=== PATIENT | male | born 1950 | race Caucasian/White ===

== ENCOUNTER 2017-02-24 11:17 | Observation (INO) ==
--- NOTE | 2017-02-24 11:43 | Emergency Department Note ---
Neuro HPI - General Chief Complaint: Stroke Symptoms Stated Complaint: Stroke symptoms Time Seen by Provider: 02/24/17 11:36 Source: family Mode of arrival: wheelchair - History of Present Illness HPI Narrative: This patient began having trouble speaking last evening about 6 PM which is now almost 18 hours ago. He called his daughter this morning he also complained it is having trouble speaking and she went saw him and had EMS bring him to the hospital for concern of a stroke. He is also noticed a little difficulty in his left arm with slight weakness and left facial droop. His blood pressure was quite high on arrival was down some now. No history of previous stroke heart disease. He does have a history of hypertension chronic back pain and hepatitis C. - Related Data Home Medications: Home Medications Medication Instructions Recorded Confirmed bisacodyl 10 mg rectal suppository 10 mg DE ONCE PRN 04/27/16 02/24/17 lorazepam 1 mg tablet 1 mg PO .COMPLEX 04/27/16 02/24/17 magnesium hydroxide 400 mg/5 mL 30 ml PO .COMPLEX ml 04/27/16 02/24/17 oral suspension sodium phosphates 19 gram-7 118 ml DE ONCE PRN 04/27/16 02/24/17 gram/118 mL enema Acetaminophen [Non-Aspirin] 650 mg PO PRN PRN 02/24/17 02/24/17 Acetaminophen [Tylenol] 650 mg DE Q4-6HP PRN 02/24/17 02/24/17 Bisacodyl [Dulcolax] 10 mg DE DAILYP PRN 02/24/17 02/24/17 Previous Rx's Medication Instructions Recorded Polyethylene Glycol 3350 [Miralax] 17 gm PO DAILYP PRN #0 packet 12/03/15 pantoprazole 40 mg tablet,delayed 40 mg PO BIDAC #90 tab 07/24/16 release fentanyl 75 mcg/hr transdermal 75 mcg TOPICAL Q72H #10 patch 01/31/17 patch hydrocodone 7.5 mg-acetaminophen 1 tab PO Q6H PRN #90 tab 01/31/17 325 mg tablet metoprolol tartrate 100 mg tablet 100 mg PO BID #60 tab 02/04/17 paroxetine 20 mg tablet 10 mg PO DAILYP PRN #0 tab 02/04/17 Allergies/Adverse Reactions: Allergies Allergy/AdvReac Type Severity Reaction Status Date / Time vancomycin Allergy Intermediate Redness of Verified 02/24/17 11:21 Skin codeine [CODEINE] AdvReac Mild NAUSEA Verified 02/24/17 11:21 Review of Systems Constitutional: Denies: fever Eyes: Denies: eye pain ENT ED: Denies: ear pain Cardiovascular: Denies: chest pain Respiratory: Denies: cough Gastrointestinal: Denies: abdominal pain, nausea Genitourinary: Denies: urgency Musculoskeletal: Reports: back pain Integumentary: Denies: rash Neurological: Denies: headache Past Medical History - Past Medical History [facility] Narrative: Medical History Disease of spinal cord, unspecified (Chronic) Gastrointestinal bleed (Chronic) Exostosis of unspecified site (Chronic) Degeneration of cervical intervertebral disc (Chronic) Renal infarction (Acute) Gastric ulcer with hemorrhage and perforation (Resolved) Gastrocutaneous fistula (Resolved) Malnutrition following gastrointestinal surgery (Resolved) Infection (Resolved) Anemia (Acute) Acute urinary retention (Resolved) Wound infection (Chronic) Subphrenic abscess (Resolved) Encounter for Postoperative Care (Acute) Perforated gastric ulcer (Resolved) Electrolyte disorder (Chronic) History of tobacco use (Chronic) Hypertension, essential (Chronic) Hepatitis C, chronic (Chronic) Chronic pain (Chronic) Lymphoid hyperplasia (Chronic) Degeneration of cervical intervertebral disc (Resolved) Exostosis (Resolved) Gastrointestinal bleed (Resolved) Spinal cord disease (Inactive) Past Surgical History History of pyloroplasty (Resolved 06/24/14) History of lumbar discectomy (Resolved) History of esophagogastroduodenoscopy (Resolved 08/03/14) History of cervical discectomy (Resolved) H/O colonoscopy (Resolved) Family History Father Heart problem Medical history: Reports: hypertension, other Surgical history ED: Reports: other - Social History smoking status: Heavy tobacco smoker Physical Exam - General Limitations: no limitations General appearance: alert, anxious - Head Head exam: atraumatic, normocephalic - Eye Eye exam: Present: normal appearance - ENT ENT exam: normal exam - Neck Neck exam: Present: normal inspection - Chest Chest inspection: Present: normal inspection - Respiratory Respiratory exam: Present: normal lung sounds bilaterally - Cardiovascular Cardiovascular exam: Present: regular rate, normal rhythm, normal heart sounds - Abdominal Exam Abdominal exam: Present: soft. Absent: distention, tenderness - Neurological Exam Neurological exam: Present: alert - Expanded Neurological Exam Cranial nerves: facial palsy (VII): Abnormal Left Cerebellar function: finger to nose: Abnormal Left Motor strength - LUE: 5/5 Motor strength - RUE: 5/5 Motor strength - RLE: 5/5 - Psychiatric Psychiatric exam: Present: normal affect, normal mood - Skin Skin exam: Present: warm, dry, intact Course Vital Signs Temperature 97.5 F 02/24/17 11:17 Pulse Rate 77 02/24/17 11:17 Respiratory Rate 16 02/24/17 11:17 Blood Pressure 194/158 02/24/17 11:17 Temperature 97.8 F 02/25/17 04:00 Pulse Rate 83 02/25/17 06:45 Respiratory Rate 15 02/25/17 05:00 Blood Pressure 192/90 02/25/17 05:00 Pulse Oximetry (%) 96 02/25/17 05:00 Neuro Symptoms/Deficit - MDM Narrative Medical decision making narrative: Patient's initial CT scan did not show an acute stroke but showed many old lacunar infarcts. Did discuss the case with Dr. Ledesma who felt the patient could stay at our hospital. Dr. Martínez admitted him to the hospital. - Lab Data Lab results reviewed: Yes I reviewed the patient's lab results. Result diagrams: 02/25/17 06:05 02/25/17 06:05 Lab Results 02/24/17 02/24/17 02/24/17 Range/Units 11:25 11:25 11:25 WBC 14.1 H (4.5-11.0) K/mcL RBC 5.09 (4.50-5.90) M/mcL Hgb 16.8 H (13.5-16.5) g/dL Hct 50.7 (41.0-55.0) % POC Hct 54.0 (41.0-55.0) % MCV 99.4 (80.0-100.0) fL MCH 33.0 (26.0-34.0) pg MCHC 33.2 (31.0-36.0) g/dL RDW 13.8 (11.5-14.5) % Plt Count 282 (140-440) K/mcL MPV 9.4 (7.4-10.4) fL Gran % 65.9 (38.0-78.0) % Lymph % (Auto) 25.2 (15.5-49.0) % [place] % (Auto) 8.5 (1.0-12.0) % Eos % (Auto) 0.3 (0.0-7.0) % Baso % (Auto) 0.1 (0.0-2.0) % Gran # 9.3 H (1.8-8.0) K/mcL Lymph # (Auto) 3.6 (1.5-4.8) K/mcL [place] # (Auto) 1.2 H (0.1-0.9) K/mcL Eos # (Auto) 0 (0.0-0.7) K/mcL Baso # (Auto) 0 (0.0-0.3) K/mcL POC PT (11.9-14.5) sec POC INR (0.9-1.2) APTT (20-37) sec POC Sodium 135 (133-145) mmol/L Sodium 134 (133-145) mmol/L POC Potassium 3.6 (3.3-5.1) mmol/L Potassium 3.8 (3.3-5.1) mmol/L POC Chloride 93 L (96-108) mmol/L Chloride 92 L (96-108) mmol/L Carbon Dioxide 26 (22-30) mmol/L POC Total CO2 29 (22-30) mmol/L Anion Gap 16.0 (8-16) POC BUN < 3 L (8-23) mg/dl BUN 4 L (8-23) mg/dl Creatinine 0.7 (0.7-1.2) mg/dl POC Creatinine 0.6 L (0.7-1.2) mg/dl GFR Calculation 99 Glucose 90 (70-105) mg/dL POC Glucose 90 (70-105) mg/dL Hemoglobin A1c (4.0-6.0) % HGB Estim Average Glucose mg/dL Calcium 9.9 (8.6-10.4) mg/dl POC WB Ioniz Calcium 1.11 L (1.16-1.32) mmol/L Total Bilirubin 0.6 (0.0-1.0) mg/dL AST 23 (0-37) U/l ALT 7 (0-40) U/l Alkaline Phosphatase 98 (39-117) U/L Troponin T < 0.01 (0-0.03) ng/ml Total Protein 8.4 (5.9-8.4) gm/dL Albumin 4.2 (3.2-5.2) gm/dL Globulin 4.2 H (2.2-3.7) gm/dL Albumin/Globulin Ratio 1.0 (1.0-2.3) Triglycerides (<150) mg/dl Cholesterol (<200) mg/dl LDL Cholesterol, Calc (SEE CHART) mg/dl Non-HDL Cholesterol (LDL TARGET+30) HDL Cholesterol (>40) mg/dl Urine Color Urine Appearance Urine pH (5.0-9.0) Ur Specific [place] (1.000-1.035) Urine Protein (NEG) mg/dL Urine Glucose (UA) (NEG) mg/dL Urine Ketones (NEG) mg/dL Urine Occult Blood (<0.03) mg/dL Urine Nitrate (NEG) Urine Bilirubin (NEG) mg/dL Urine Urobilinogen (NEG) mg/dL Ur Leukocyte Esterase (NEG) /uL Urine RBC (0-1) /hpf Urine WBC (0-4) /hpf Ur Squamous Epith Cells (0-4) /hpf Urine Bacteria (0) /hpf Urine Mucus (0) /hpf Ur Culture Indicated? 02/24/17 02/24/17 02/24/17 Range/Units 11:25 12:25 13:10 WBC (4.5-11.0) K/mcL RBC (4.50-5.90) M/mcL Hgb (13.5-16.5) g/dL Hct (41.0-55.0) % POC Hct (41.0-55.0) % MCV (80.0-100.0) fL MCH (26.0-34.0) pg MCHC (31.0-36.0) g/dL RDW (11.5-14.5) % Plt Count (140-440) K/mcL MPV (7.4-10.4) fL Gran % (38.0-78.0) % Lymph % (Auto) (15.5-49.0) % [place] % (Auto) (1.0-12.0) % Eos % (Auto) (0.0-7.0) % Baso % (Auto) (0.0-2.0) % Gran # (1.8-8.0) K/mcL Lymph # (Auto) (1.5-4.8) K/mcL [place] # (Auto) (0.1-0.9) K/mcL Eos # (Auto) (0.0-0.7) K/mcL Baso # (Auto) (0.0-0.3) K/mcL POC PT 13.3 (11.9-14.5) sec POC INR 1.1 (0.9-1.2) APTT 34 (20-37) sec POC Sodium (133-145) mmol/L Sodium (133-145) mmol/L POC Potassium (3.3-5.1) mmol/L Potassium (3.3-5.1) mmol/L POC Chloride (96-108) mmol/L Chloride (96-108) mmol/L Carbon Dioxide (22-30) mmol/L POC Total CO2 (22-30) mmol/L Anion Gap (8-16) POC BUN (8-23) mg/dl BUN (8-23) mg/dl Creatinine (0.7-1.2) mg/dl POC Creatinine (0.7-1.2) mg/dl GFR Calculation Glucose (70-105) mg/dL POC Glucose (70-105) mg/dL Hemoglobin A1c 5.1 (4.0-6.0) % HGB Estim Average Glucose 100 mg/dL Calcium (8.6-10.4) mg/dl POC WB Ioniz Calcium (1.16-1.32) mmol/L Total Bilirubin (0.0-1.0) mg/dL AST (0-37) U/l ALT (0-40) U/l Alkaline Phosphatase (39-117) U/L Troponin T (0-0.03) ng/ml Total Protein (5.9-8.4) gm/dL Albumin (3.2-5.2) gm/dL Globulin (2.2-3.7) gm/dL Albumin/Globulin Ratio (1.0-2.3) Triglycerides 98 (<150) mg/dl Cholesterol 193 (<200) mg/dl LDL Cholesterol, Calc 133 H (SEE CHART) mg/dl Non-HDL Cholesterol 152 H (LDL TARGET+30) HDL Cholesterol 41 (>40) mg/dl Urine Color Yellow Urine Appearance Clear Urine pH 7.0 (5.0-9.0) Ur Specific [place] 1.010 (1.000-1.035) Urine Protein 30 A (NEG) mg/dL Urine Glucose (UA) Negative (NEG) mg/dL Urine Ketones 20 A (NEG) mg/dL Urine Occult Blood 0.2 A (<0.03) mg/dL Urine Nitrate Neg (NEG) Urine Bilirubin Neg (NEG) mg/dL Urine Urobilinogen 2.0 A (NEG) mg/dL Ur Leukocyte Esterase Neg (NEG) /uL Urine RBC 12 H (0-1) /hpf Urine WBC 1 (0-4) /hpf Ur Squamous Epith Cells 0 (0-4) /hpf Urine Bacteria 0 (0) /hpf Urine Mucus Few (0) /hpf Ur Culture Indicated? No - Radiology Data Radiology results reviewed: Yes I reviewed the patient's radiology results. Disposition Pt seen by SCIENCE ANALYST/PA only: No Clinical Impression: Stroke Symptoms Disposition: Xfer As Inpt ([facility]) Condition: Critical
[2017-02-24 12:20] LABS: Basophils # (Auto) 0 K/mcL (0.0-0.3); Basophils % (Auto) 0.1 % (0.0-2.0); Eosinophils # (Auto) 0 K/mcL (0.0-0.7); Eosinophils % (Auto) 0.3 % (0.0-7.0); Granulocytes % (Auto) 65.9 % (38.0-78.0); Lymphocytes # (Auto) 3.6 K/mcL (1.5-4.8); Lymphocytes % (Auto) 25.2 % (15.5-49.0); Mean Cell Volume 99.4 fL (80.0-100.0); Mean Corpuscular HGB Conc 33.2 g/dL (31.0-36.0); Monocytes # (Auto) 1.2 K/mcL (0.1-0.9); Monocytes % (Auto) 8.5 % (1.0-12.0); Platelet Count 282 K/mcL (140-440); RBC 5.09 M/mcL (4.50-5.90); Red Cell Distribution Width 13.8 % (11.5-14.5)
[2017-02-24 12:58] LABS: ALT/SGPT 7 U/l (0-40); Albumin 4.2 gm/dL (3.2-5.2); Alkaline Phosphatase 98 U/L (39-117); Blood Urea Nitrogen 4 mg/dl (8-23)
[2017-02-24 13:44] LABS: Appearance,Urine CLEAR; Bacteria,Urine 0 /hpf (0); Bilirubin,Urine NEG (NEG); Color,Urine YELLOW; Glucose,Urine (UA) NEGATIVE (NEG); Leukocyte Esterase,Urine NEG /uL (NEG); Mucus,Urine FEW /hpf (0); Nitrate,Urine NEG (NEG); Protein,Urine 30 mg/dL (NEG); Urine Blood 0.2 mg/dL (<0.03); Urine RBC 12 /hpf (0-1); Urine Squamous Epithelial Cell 0 /hpf (0-4); Urine WBC 1 /hpf (0-4)
--- NOTE | 2017-02-24 14:53 | Cat Scan Report ---
History: Acute stroke symptoms with aphasia and facial paralysis Findings: The brain was imaged without contrast at 2.5 mm intervals. There is a moderately large old infarct with encephalomalacia involving the distribution right posterior cerebral artery. The greatest involvement is in the visual cortex the right occipital lobe. This extends into the posterior medial portion of the right parietal lobe. There are multiple lacunar infarcts with encephalomalacia. There is involvement both left and right caudate nucleus and the anterior superior margin of the left putamen, near the boundary with the anterior limb of left internal capsule. These also appear to be old. However, they were not present on a prior head CT angiogram done in 2004. No cortical infarct is detected in the region of the speech center. There is no hemorrhage or mass effect. Moderate atrophy is present, predominantly involving the frontal lobes. Associated with this is mild ventricular dilatation. The atrophy has become worse since 2004. Impression: Multiple old infarcts involving the basal ganglia bilaterally and the right parietal/occipital lobes. An acute infarct is not identified. Dr. Mcmillan was called with results at 11:40 AM. Interpreted and Authenticated by: Max Mason 02/24/17
[2017-02-24] MEDS ORDERED: NALOXONE HCL 0.4 MG/ML VIAL IV PRN (14:58)
[2017-02-24] MEDS ORDERED: ONDANSETRON 4 MG/2 ML VIAL IV PRN (14:58)
[2017-02-24] MEDS ORDERED: ACETAMINOPHEN 325 MG TABLET PO PRN (14:58)
[2017-02-24] MEDS ORDERED: NITROGLYCERIN 0.4 MG TAB.SUBL SL PRN (14:58)
[2017-02-24] MEDS ORDERED: DEXTROSE 50% 50 ML VIAL IV PRN (14:58)
[2017-02-24] MEDS ORDERED: ALBUTEROL SULFATE 2.5 MG/3 ML NEBULIZER NEB PRN (14:58)
[2017-02-24] MEDS ORDERED: LORazepam 2 MG/ML VIAL IV PRN (14:58)
[2017-02-24 15:06] LABS: Hemoglobin A1C 5.1 % HGB (4.0-6.0)
[2017-02-24] MEDS: HEPARIN 5,000 UNIT/ML VIAL SQ SCH ×2 (15:19→20:48)
--- NOTE | 2017-02-24 15:24 | Cat Scan Report ---
History: Stroke with aphasia and facial paralysis Technique: Nonionic contrast was injected. Arterial phase images were acquired of the head and neck separately. Sagittal coronal and 3-D images were then created. Findings: The aortic arch and great vessels arising from the arch are normal caliber. There is a moderate amount of plaque distortion the left subclavian artery. This is not causing significant stenosis. The common carotids are normal. A large amount densely calcified plaque is present in the carotid bifurcation bilaterally. This is causing greater than 90% stenosis at the origin of the right internal carotid and proximal 75% stenosis origin left internal carotid. Beyond their origins, the internal carotids are normal throughout the remainder the neck. The left vertebral artery is dominant. There is a focal stenosis at the origin of the right vertebral artery with proximal 70% stenosis. Intracranial images show densely calcified plaques in the cavernous portions of both internal carotids. This is causing 75-80% stenosis of both internal carotids. There is filling of the anterior and middle cerebral arteries bilaterally, with no occlusion of the visualized portions of the anterior or middle cerebral arteries. There is a small patent anterior to indicating artery. Patient also has small bilateral patent posterior to indicating arteries. There is a focal dense calcification in left vertebral artery at foramen magnum. This is not causing significant stenosis. The right vertebral and basilar artery are normal. Posterior fossa circulation is normal. The right posterior cerebral artery is very small and has diminished flow within it compared to the left. This corresponds with a large old infarct in the right occipital and parietal lobes. Present is no intracranial aneurysm or vascular malformation. Incidentally noted are postoperative changes following spinal fusion in the lower cervical spine using plate and screws. Is also severe left maxillary sinusitis. Impression: Severe atherosclerotic disease causing 90% stenosis at the origin of the right internal carotid and 75% stenosis in the left internal carotid. 75-80% stenosis of the intracranial portions of both internal carotids at the level of the cavernous sinuses. Dr. Martínez was called with results with the results Interpreted and Authenticated by: Max Mason 02/24/17
--- NOTE | 2017-02-24 15:34 | XRay Report ---
HISTORY: Reason for Exam:stroke FINDINGS: The lungs are clear and well expanded. Prominent nipple shadow is seen laterally in the left mid thorax. The heart size, pulmonary vasculature, mediastinum, maday and pleura are normal. IMPRESSION: Normal chest Interpreted and Authenticated by: Max Mason 02/24/17
[2017-02-24] MEDS ORDERED: ACETAMINOPHEN (PP) 325MG TABLET (#50) PO PRN (16:20)
[2017-02-24] MEDS ORDERED: PARoxetine 20 MG TABLET PO PRN (16:20)
--- NOTE | 2017-02-24 16:23 | Internal Med History&Physical ---
Medical - H&P: HPI Patient information: Note initiated : 02/24/17 at 4:22 pm Service Date, if different from initiated Date: [] Patient: Brodie Farooq 66 y/o M admitted on 02/24/17 for Stroke symptoms. Chief Complaint: [] History of present illness: Mr. Farooq is a 66 year old Male with h/o chr pain, hep c, GI bleed in the past presents to the ER today with complaints of left side weakness and slurring of speech going on since 6 pm yesterday The patient noticed this yesterday and did not come to the hospital, thioguht it would go away? this AM while talking to his family member likely the daugther he still had ongoing aphasia, and some lack of coordination. The was therfore brought to the hospital for further management. He notes he was in his usual state uptill around 6 PM yesterday when he noticed change in speech as well as some lack of coordination on the left side. He has chr pain issues, but beyond this does not complain of anything else. He denies any chest pain, palpitations, dizziness, headache, cough, bowel or bladder issues. The patient in the ER was seen and CT head was read as multiple old strokes. Patient was admitted to the hospital for further maangement. Tele stroke team contacted who advised workup here and no need for transfer workup initiated here, CTA neck and Head showed significant External Rt Carotid , left carotid , as well as bilateral Intracranial carotid artery stenosis. I reviewed the CAse with Dr Ledesma as well as Dr Luna (vascular surgeon). Dr Ledesma advised taht patient needs MRI and based on that may need outpatient vs inpatient evaluation of stenosis. I reviewed the case with Dr Luna, who noted that the patient should be monitored and since he has clinical CVA would benefit from waiting 4 weeks and then outpatient follow up in the clinic. The patient needs to be monitored and should there be any change in ins neurological status, then he would need urgent transfer to [place] for vascular intervention. Patient was advised to be started on dual antibplatlet agents asa and plavix, along with statin by Dr Ledesma. All systems: reviewed and no additional remarkable complaints except as stated ( as per HPI) Medical - H&P: PMH Medical history: Medical History Disease of spinal cord, unspecified (Chronic) Gastrointestinal bleed (Chronic) Exostosis of unspecified site (Chronic) Degeneration of cervical intervertebral disc (Chronic) Renal infarction (Acute) Gastric ulcer with hemorrhage and perforation (Resolved) Gastrocutaneous fistula (Resolved) Malnutrition following gastrointestinal surgery (Resolved) Infection (Resolved) Anemia (Acute) Acute urinary retention (Resolved) Wound infection (Chronic) Subphrenic abscess (Resolved) Encounter for Postoperative Care (Acute) Perforated gastric ulcer (Resolved) Electrolyte disorder (Chronic) History of tobacco use (Chronic) Hypertension, essential (Chronic) Hepatitis C, chronic (Chronic) Chronic pain (Chronic) Lymphoid hyperplasia (Chronic) Degeneration of cervical intervertebral disc (Resolved) Exostosis (Resolved) Gastrointestinal bleed (Resolved) Spinal cord disease (Inactive) Surgical history: Past Surgical History History of pyloroplasty (Resolved 06/24/14) History of lumbar discectomy (Resolved) History of esophagogastroduodenoscopy (Resolved 08/03/14) History of cervical discectomy (Resolved) H/O colonoscopy (Resolved) Pertinent family history: Family History Father Heart problem Medical - H&P: Meds Home Medications Medication Instructions Recorded Confirmed Type Polyethylene Glycol 3350 [Miralax] 17 gm PO DAILYP PRN #0 packet 12/03/15 Rx bisacodyl 10 mg rectal suppository 10 mg SD ONCE PRN 04/27/16 02/24/17 History lorazepam 1 mg tablet 1 mg PO .COMPLEX 04/27/16 02/24/17 History magnesium hydroxide 400 mg/5 mL 30 ml PO .COMPLEX ml 04/27/16 02/24/17 History oral suspension sodium phosphates 19 gram-7 118 ml SD ONCE PRN 04/27/16 02/24/17 History gram/118 mL enema pantoprazole 40 mg tablet,delayed 40 mg PO BIDAC #90 tab 07/24/16 02/24/17 Rx release fentanyl 75 mcg/hr transdermal 75 mcg TOPICAL Q72H #10 patch 01/31/17 02/24/17 Rx patch hydrocodone 7.5 mg-acetaminophen 1 tab PO Q6H PRN #90 tab 01/31/17 02/24/17 Rx 325 mg tablet metoprolol tartrate 100 mg tablet 100 mg PO BID #60 tab 02/04/17 02/24/17 Rx paroxetine 20 mg tablet 10 mg PO DAILYP PRN #0 tab 02/04/17 02/24/17 Rx Acetaminophen [Non-Aspirin] 650 mg PO PRN PRN 02/24/17 02/24/17 History Acetaminophen [Tylenol] 650 mg SD Q4-6HP PRN 02/24/17 02/24/17 History Bisacodyl [Dulcolax] 10 mg SD DAILYP PRN 02/24/17 02/24/17 History Allergies Allergy/AdvReac Type Severity Reaction Status Date / Time vancomycin Allergy Intermediate Redness of Verified 02/24/17 11:21 Skin codeine [CODEINE] AdvReac Mild NAUSEA Verified 02/24/17 11:21 Medical - H&P: Exam - Constitutional Vitals: Temp Pulse Resp BP Pulse Ox 97.4 F 74 19 193/107 99 02/24/17 16:03 02/24/17 15:00 02/24/17 16:03 02/24/17 16:03 02/24/17 16:03 Exam: GENERAL: The patient is a well-developed, well-nourished in no apparent distress. Is alert and oriented x3. VITAL SIGNS: Reviewed and as noted elsewhere. HEENT: Head is normocephalic and atraumatic. Extraocular muscles are intact. Pupils are equal, round, and reactive to light. Nares appeared normal. Mouth appears any without lesions. Mucous membranes are moist. NECK: Normal to inspection, Supple, No lymphadenopathy or thyromegaly. LUNGS: Air entry equal on both sides, no wheezing, crackles or rhonchi noted. No accessory muscles of respiration HEART: Regular rate and rhythm normal, S1 and S2 heard, no Gallop, S3 or Rub Noted, No Gross murmur heard. ABDOMEN: Soft, nontender, and nondistended. Positive bowel sounds. No hepatosplenomegaly was noted. EXTREMITIES: No cyanosis, clubbing, rash, lesions or edema. NEUROLOGIC: Cranial nerves 7 upper motor neuron palsy, CN 347 normal are grossly intact. Motor and Sensory System Grossly Intact, coordination grossly intact PSYCHIATRIC: Normal affect, Normal Mood. Appropriate Behavior. SKIN: No ulceration or wounds noted, No jaundice, No rash noted. Medical - H&P: Reslt - Labs CBC & Chem 7: 02/24/17 11:25 02/24/17 11:25 Labs: Short CBC 02/24/17 Range/Units 11:25 WBC 14.1 H (4.5-11.0) K/mcL Hgb 16.8 H (13.5-16.5) g/dL Hct 50.7 (41.0-55.0) % Plt Count 282 (140-440) K/mcL BMP 02/24/17 11:25 Sodium 134 Potassium 3.8 Chloride 92 L Carbon Dioxide 26 BUN 4 L Creatinine 0.7 Glucose 90 Calcium 9.9 Cardiac Enzymes 02/24/17 Range/Units 11:25 Troponin T < 0.01 (0-0.03) ng/ml Liver Function 02/24/17 Range/Units 11:25 Total Bilirubin 0.6 (0.0-1.0) mg/dL AST 23 (0-37) U/l ALT 7 (0-40) U/l Alkaline Phosphatase 98 (39-117) U/L Albumin 4.2 (3.2-5.2) gm/dL Urine 02/24/17 Range/Units 13:10 Urine Color Yellow Urine Appearance Clear Urine pH 7.0 (5.0-9.0) Ur Specific [place] 1.010 (1.000-1.035) Urine Protein 30 A (NEG) mg/dL Urine Glucose (UA) Negative (NEG) mg/dL Medical - H&P: A/P - Narrative A/P Narrative: A/P Acute CVA- Monitor in PCU for now, neurochecks q2hrs, xfer to higher center if worsening neurological status. start on asa, plavix and statin as per neurology reccs. HOld bp meds and monitor, monitor glucose, Carotid artery stenosis: needs intervention, Discussed case with Dr Luna, outaptient follow up in 4 weeks unless patient has stroke in evolution. Chr pain resume home meds Anxiety on ativan prn h/o anemia, gi bleed: BID PPI for now, continue same, now more needed as needs dual antiplatelet agents. HTN - hold bp meds in light of new cva, resume as tolerated, will use meds to keep bp < 220 systolic and 120 diastoilc. Hep C Chr issue monitor DVT hep sq Diet NPO for now, bed side eval by nursing to evaluate if safe for meds Full code. Medical - H&P: Qual - Stroke Onset of Symptoms Date: 02/23/17 Onset of Symptoms Time: 18:00 Symptom Onset Unknown: No - VTE Deep Vein Thrombosis/Pulmonary Embolism Present on Admission: No Social History - Social History marital status: - Exercise physical activity: walking - Tobacco smoking status: Current every day smoker - Tobacco Type tobacco type: cigarettes - Cigarette Details per day: 6 - Alcohol alcohol intake frequency: former alcohol drinker - Substance use substance use type: marijuana
[2017-02-24] MEDS ORDERED: fentaNYL 75 MCG PATCH TOPICAL SCH (16:30)
[2017-02-24] MEDS ORDERED: MAGNESIUM HYDROXIDE 30 ML ORAL.SUSP PO PRN (16:30)
[2017-02-24] MEDS ORDERED: LORazepam 1 MG TABLET PO PRN (16:30)
[2017-02-24] MEDS: INSULIN LISPRO 1 UNIT/0.01 ML UNIT SQ SCH (18:18)
[2017-02-24] MEDS ORDERED: BISACODYL 10 MG SUPP.RECT PR PRN (18:30)
[2017-02-24] MEDS: PANTOPRAZOLE 40 MG TABLET PO SCH (18:43)
[2017-02-24] MEDS: CLOPIDOGREL 75 MG TABLET PO SCH (18:43)
[2017-02-24] MEDS: 0.9 % SODIUM CHLORIDE 10 ML SYRINGE IV SCH (20:48)
[2017-02-24] MEDS: FAMOTIDINE/PF 20 MG/2 ML VIAL IV SCH (20:48)
[2017-02-24] MEDS: ATORVASTATIN 20 MG TABLET PO SCH (20:48)
[2017-02-25] MEDS: INSULIN LISPRO 1 UNIT/0.01 ML UNIT SQ SCH ×4 (00:22→18:32)
[2017-02-25] MEDS: HYDROmorphone 2 MG/ML SYRINGE IV PRN ×3 (00:52→15:21)
[2017-02-25] MEDS: 0.9 % SODIUM CHLORIDE 10 ML SYRINGE IV SCH ×3 (05:50→20:30)
[2017-02-25 07:06] LABS: Basophils # (Auto) 0.1 K/mcL (0.0-0.3); Basophils % (Auto) 0.5 % (0.0-2.0); Eosinophils # (Auto) 0 K/mcL (0.0-0.7); Eosinophils % (Auto) 0.3 % (0.0-7.0); Granulocytes % (Auto) 64.4 % (38.0-78.0); Lymphocytes # (Auto) 3.3 K/mcL (1.5-4.8); Lymphocytes % (Auto) 27.5 % (15.5-49.0); Mean Corpuscular HGB Conc 34.1 g/dL (31.0-36.0); Monocytes # (Auto) 0.9 K/mcL (0.1-0.9); Monocytes % (Auto) 7.3 % (1.0-12.0); Platelet Count 218 K/mcL (140-440); RBC 5.27 M/mcL (4.50-5.90); Red Cell Distribution Width 13.7 % (11.5-14.5)
[2017-02-25 07:29] LABS: ALT/SGPT 8 U/l (0-40); Alkaline Phosphatase 94 U/L (39-117); Bilirubin,Direct < 0.2 mg/dL (0.0-0.3); Blood Urea Nitrogen 6 mg/dl (8-23); Gamma Glutamyl Transpeptidase 52 U/L (8-61); Uric Acid 5.3 mg/dL (2.5-8.0)
[2017-02-25] MEDS: PANTOPRAZOLE 40 MG TABLET PO SCH ×2 (07:47→17:14)
--- NOTE | 2017-02-25 09:05 | Magnetic Resonance Report ---
CLINICAL INFORMATION: Left-sided weakness, facial paralysis and aphasia COMPARISON: Head CT from 02/24/2017 and CTA head and cervical carotid 02/24/2017. TECHNIQUE:Sagittal T1 FLAIR, axial T1 FLAIR, T2 FLAIR propeller, T2 propeller, gradient, diffusion, ADC and coronal T2 weighted images were acquired. FINDINGS: The ventricles, sulci, fissures and cisterns are symmetrically enlarged compatible with moderate atrophy - more than expected for age. There are no extra-axial fluid collections or masses appreciated. There are multiple small acute cortical based infarcts are scattered throughout the right frontal, parietal and occipital lobes. The largest is 3.5 x 1.5 cm in the motor strip of the posterior right frontal lobe. There is no evidence of hemorrhage. A small remote cortical-based infarct in the right occipital lobe is appreciated. There are also scattered remote lacunar infarcts in the basal ganglia and deep cerebral white matter. Signal void in the intracerebral arteries, orbits and pituitary are all normal. There is subtotal opacification left maxillary sinus. The other paranasal air cells are clear IMPRESSION: 1. Multiple small cortical based nonhemorrhagic lacunar infarcts scattered throughout the right cerebral hemisphere including the frontal, parietal and occipital lobes. The largest is 3.5 x 1 cm in the motor strip of the posterior right frontal lobe. Suspect embolic phenomenon 2. Moderate atrophy - more than expected for age. 3. Small remote cortical based infarct in the inferior occipital lobe and scattered remote lacunar infarcts in the deep cerebral white matter and basal ganglia. 4. Severe left maxillary sinusitis Interpreted and Authenticated by: Kar Morris 02/25/17
[2017-02-25] MEDS: HEPARIN 5,000 UNIT/ML VIAL SQ SCH ×2 (09:19→20:45)
[2017-02-25] MEDS: CLOPIDOGREL 75 MG TABLET PO SCH (09:19)
[2017-02-25] MEDS: ASPIRIN 81 MG TAB.CHEW PO SCH (09:20)
[2017-02-25] MEDS: FAMOTIDINE/PF 20 MG/2 ML VIAL IV SCH ×2 (09:20→20:46)
[2017-02-25] MEDS ORDERED: PNEUMOCOCCAL 23-VAL P-SAC VAC 0.5 ML VIAL IM ONE (10:00)
[2017-02-25] MEDS ORDERED: FLU VACC QS2017-18 36MOS UP/PF 60 MCG/0.5 ML SYRINGE IM ONE (10:00)
[2017-02-25] MEDS: fentaNYL 75 MCG PATCH TOPICAL SCH (10:23)
--- NOTE | 2017-02-25 16:58 | Internal Med Progress Note ---
Medical - PN: Subj Patient information: Note initiated : 02/25/17 at 4:56 pm Service Date, if different from initiated Date: [] Patient: Brodie Farooq 66 y/o M admitted on 02/24/17 for Stroke Symptoms/CVA. Chief Complaint: [] Interval history: Mr. Farooq is a 66 year old Male with h/o chr pain, hep c, GI bleed in the past presents to the ER today with complaints of left side weakness and slurring of speech going on since 6 pm yesterday The patient noticed this yesterday and did not come to the hospital, thioguht it would go away? this AM while talking to his family member likely the daugther he still had ongoing aphasia, and some lack of coordination. The was therfore brought to the hospital for further management. He notes he was in his usual state uptill around 6 PM yesterday when he noticed change in speech as well as some lack of coordination on the left side. He has chr pain issues, but beyond this does not complain of anything else. He denies any chest pain, palpitations, dizziness, headache, cough, bowel or bladder issues. The patient in the ER was seen and CT head was read as multiple old strokes. Patient was admitted to the hospital for further maangement. Tele stroke team contacted who advised workup here and no need for transfer workup initiated here, CTA neck and Head showed significant External Rt Carotid , left carotid , as well as bilateral Intracranial carotid artery stenosis. I reviewed the CAse with Dr Ledesma as well as Dr Luna (vascular surgeon). Dr Ledesma advised taht patient needs MRI and based on that may need outpatient vs inpatient evaluation of stenosis. I reviewed the case with Dr Luna, who noted that the patient should be monitored and since he has clinical CVA would benefit from waiting 4 weeks and then outpatient follow up in the clinic. The patient needs to be monitored and should there be any change in ins neurological status, then he would need urgent transfer to [place] for vascular intervention. Patient was advised to be started on dual antibplatlet agents asa and plavix, along with statin by Dr Ledesma February 25 pt seen examined stable overnight multiple lacunar infarcts on MRI discussed again with Dr Ledesma, plan to have outpatient eval by vascular surgery , Dr Luna in [place], patient ot be on dual antibplatet agents for now, on statin no new deficit. Pertinent ROS: Denies headache, dizziness Denies chest pain, palpitations Denies cough or shortness of breath Denies abdominal pain, nausea or vomiting. - Constitutional Vitals: Vital Signs Temp Pulse Resp BP Pulse Ox 98.2 F 93 H 16 153/104 97 02/25/17 12:01 02/25/17 16:49 02/25/17 16:49 02/25/17 16:01 02/25/17 16:49 Period Temp Pulse Resp BP Sys/Tamez Pulse Ox Last 24 Hr 97.6 F-98.2 F 69-93 9-22 148-208/89-124 95-100 Intake and Output 02/25/17 02/25/17 02/25/17 05:59 13:59 21:59 Output Total 250 / 250 200 / 200 Balance -250 / -250 -200 / -200 Intake & Output: Intake & Output 02/25/17 02/25/17 02/25/17 05:59 13:59 21:59 Output Total 250 / 250 200 / 200 Balance -250 / -250 -200 / -200 Output: Void Amount 250 / 250 200 / 200 Other: # Bowel Movements 0 Exam: Constitutional; Afebrile, cooperative, alert, not in distress. Eyes- No icterus, , No periorbital swelling Ears- Ext ear normal, hearing normal to conversation. Neck- Midline trachea, supple Respiratory system: Air Entry equal on both sides, No crackles or wheezing, no rhonchi. CVS- Rate rhythm regular, S1,S2 heard, no gallop, no rub. Abdomen- Soft nontender abdomen, no organomegaly, no tenderness, no guarding or rigidity, MANAGER INTEGRITY- AOOx3, left side 4+/5, no change, has left 7th paraesis, and dysarthria. Medical - PN: Obj Da - Labs CBC & Chem 7: 02/25/17 06:05 02/25/17 06:05 Labs: Abnormal Lab Results 02/25/17 02/25/17 02/24/17 06:05 06:05 13:10 WBC 12.0 H Hgb 17.4 H Gran # [place] # (Auto) POC Chloride Chloride 94 L POC BUN BUN 6 L POC Creatinine POC WB Ioniz Calcium Lactate Dehydrogenase 261 H Globulin 3.9 H LDL Cholesterol, Calc Non-HDL Cholesterol Urine Protein 30 A Urine Ketones 20 A Urine Occult Blood 0.2 A Urine Urobilinogen 2.0 A Urine RBC 12 H 02/24/17 02/24/17 02/24/17 11:25 11:25 11:25 WBC 14.1 H Hgb 16.8 H Gran # 9.3 H [place] # (Auto) 1.2 H POC Chloride 93 L Chloride 92 L POC BUN < 3 L BUN 4 L POC Creatinine 0.6 L POC WB Ioniz Calcium 1.11 L Lactate Dehydrogenase Globulin 4.2 H LDL Cholesterol, Calc 133 H Non-HDL Cholesterol 152 H Urine Protein Urine Ketones Urine Occult Blood Urine Urobilinogen Urine RBC Meds: Medications Acetaminophen (Tylenol) 650 mg PO Q4-6HP PRN PRN Reason: PAIN/FEVER > 101 Hydrocodone Bitart/Acetaminophen ([place] 7.5/325mg) 1 tab PO Q6HP PRN PRN Reason: pain Albuterol Sulfate (Ventolin) 2.5 mg NEB Q4HRT PRN PRN Reason: Shortness Of Breath Or Wheezing Aspirin (Aspirin) 81 mg PO DAILY [facility] Last Admin: 02/25/17 09:20 Dose: 81 mg Atorvastatin Calcium (Lipitor) 40 mg PO HS [facility] Last Admin: 02/24/17 20:48 Dose: 40 mg Bisacodyl (Dulcolax) 10 mg [place] DAILYP PRN PRN Reason: Constipation Clopidogrel Bisulfate (Plavix) 75 mg PO DAILY [facility] Last Admin: 02/25/17 09:19 Dose: 75 mg Dextrose (Dextrose 50%) 0 ml IV UD PRN PRN Reason: Hypoglycemia Diagnostic Test (Pha) (Accu-Chek) 1 each FS Q6 [facility] Last Admin: 02/25/17 12:18 Dose: 1 each Famotidine (Pepcid) 20 mg IV Q12 [facility] Last Admin: 02/25/17 09:20 Dose: 20 mg Fentanyl (Duragesic) 75 mcg TOPICAL Q72@1000 [facility] Last Admin: 02/25/17 10:23 Dose: 75 mcg Heparin Sodium (Porcine) (Heparin) 5,000 unit SQ Q12 [facility] Last Admin: 02/25/17 09:19 Dose: 5,000 unit Hydromorphone HCl (Dilaudid) 0.5 mg IV Q2HP PRN PRN Reason: Pain Last Admin: 02/25/17 15:21 Dose: 0.5 mg Insulin Human Lispro (Humalog) 0 unit SQ Q6 [facility] PRN Reason: Protocol Last Admin: 02/25/17 12:19 Dose: Not Given Lorazepam (Ativan) 0.5 mg IV Q2HP PRN PRN Reason: ANXIETY/SEDATION Lorazepam (Ativan) 0.5 - 1 mg PO DAILYP PRN PRN Reason: Anxiety Magnesium Hydroxide (Milk Of Magnesia) 30 ml PO DAILYP PRN PRN Reason: CONSTIPATION Naloxone HCl (Narcan) 0.1 mg IV Q2MIN PRN PRN Reason: Opiate Reversal Nitroglycerin (Nitrostat) 0.4 mg SL Q5M PRN PRN Reason: Chest Pain Ondansetron HCl (Zofran) 4 mg IV Q4-6HP PRN PRN Reason: Nausea And Vomiting Pantoprazole Sodium (Protonix) 40 mg PO BIDAC [facility] Last Admin: 02/25/17 07:47 Dose: 40 mg Paroxetine HCl (Paxil) 10 mg PO DAILYP PRN PRN Reason: Anxiety Sodium Chloride (Saline Flush) 10 ml IV Q8 [facility] Last Admin: 02/25/17 14:03 Dose: 10 ml Medical - PN: A/P - Time Spent With Patient Total time spent is greater than 50% in coordination of care (as documented) at patient's floor/unit and/or counseling patient: - Narrative A/P Narrative: A/P Acute CVA- Monitor in PCU for now, neurochecks q2hrs, xfer to higher center if worsening neurological status. start on asa, plavix and statin as per neurology reccs. HOld bp meds and monitor, monitor glucose, Carotid artery stenosis: needs intervention, Discussed case with Dr Luna, outaptient follow up in 4 weeks unless patient has stroke in evolution. presentlyh patient remains stable. Chr pain resume home meds Anxiety on ativan prn h/o anemia, gi bleed: BID PPI for now, continue same, now more needed as needs dual antiplatelet agents. case discussed with pt, he needs to stop etoh. HTN - hold bp meds in light of new cva, resume as tolerated, will use meds to keep bp < 220 systolic and 120 diastoilc. Hep C: Chr issue monitor DVT hep sq Diet NPO for now, bed side eval by nursing to evaluate if safe for meds, ST eval pending Full code. Patient extensively educated regarding his case, plan for outpatient revasculariztion . He has risk of bleed given previous GI bleed, he should remain on PPi for now,. Medical - PN: Qual - Stroke Onset of Symptoms Date: 02/23/17 Onset of Symptoms Time: 18:00 Symptom Onset Unknown: No - VTE Deep Vein Thrombosis/Pulmonary Embolism Present on Admission: No
[2017-02-25] MEDS: HYDROCODONE/APAP 7.5/325MG TABLET PO PRN ×2 (17:14→20:46)
[2017-02-25] MEDS: ATORVASTATIN 20 MG TABLET PO SCH (20:46)
[2017-02-26] MEDS: INSULIN LISPRO 1 UNIT/0.01 ML UNIT SQ SCH (00:52)
[2017-02-26] MEDS: HYDROCODONE/APAP 7.5/325MG TABLET PO PRN ×4 (02:40→20:27)
[2017-02-26 06:05] LABS: Basophils # (Auto) 0 K/mcL (0.0-0.3); Basophils % (Auto) 0.4 % (0.0-2.0); Eosinophils # (Auto) 0 K/mcL (0.0-0.7); Eosinophils % (Auto) 0.4 % (0.0-7.0); Granulocytes % (Auto) 65.8 % (38.0-78.0); Lymphocytes # (Auto) 2.7 K/mcL (1.5-4.8); Lymphocytes % (Auto) 23.5 % (15.5-49.0); Mean Cell Volume 98.8 fL (80.0-100.0); Mean Corpuscular HGB Conc 33.1 g/dL (31.0-36.0); Mean Corpuscular Hemoglobin 32.7 pg (26.0-34.0); Monocytes # (Auto) 1.1 K/mcL (0.1-0.9); Monocytes % (Auto) 9.9 % (1.0-12.0); Platelet Count 278 K/mcL (140-440); RBC 5.28 M/mcL (4.50-5.90); Red Cell Distribution Width 13.6 % (11.5-14.5)
[2017-02-26 06:28] LABS: ALT/SGPT 6 U/l (0-40); Albumin 3.7 gm/dL (3.2-5.2); Albumin/Globulin Ratio 0.9 (1.0-2.3); Alkaline Phosphatase 90 U/L (39-117); Bilirubin,Direct < 0.2 mg/dL (0.0-0.3); Blood Urea Nitrogen 8 mg/dl (8-23); Gamma Glutamyl Transpeptidase 48 U/L (8-61); Magnesium 1.9 mg/dL (1.6-2.5); Uric Acid 5.5 mg/dL (2.5-8.0)
[2017-02-26] MEDS: PANTOPRAZOLE 40 MG TABLET PO SCH ×2 (07:44→17:19)
[2017-02-26] MEDS: 0.9 % SODIUM CHLORIDE 10 ML SYRINGE IV SCH ×3 (07:44→20:25)
[2017-02-26] MEDS: FAMOTIDINE/PF 20 MG/2 ML VIAL IV SCH ×3 (09:09→20:40)
[2017-02-26] MEDS: HEPARIN 5,000 UNIT/ML VIAL SQ SCH ×2 (09:10→20:26)
[2017-02-26] MEDS: CLOPIDOGREL 75 MG TABLET PO SCH (09:10)
[2017-02-26] MEDS: ASPIRIN 81 MG TAB.CHEW PO SCH (09:10)
[2017-02-26] MEDS: fentaNYL 75 MCG PATCH TOPICAL SCH (10:25)
[2017-02-26] MEDS: METOPROLOL TARTRATE 50 MG TABLET PO SCH ×3 (10:25→20:27)
--- NOTE | 2017-02-26 14:07 | Internal Med Progress Note ---
Medical - PN: Subj Patient information: Note initiated : 02/26/17 at 1:57 pm Patient: Brodie Farooq 66 y/o M admitted on 02/24/17 for Stroke Symptoms/CVA. Interval history: Mr. Farooq is a 66 year old Male with h/o chr pain, hep c, GI bleed in the past presents to the ER today with complaints of left side weakness and slurring of speech going on since 6 pm yesterday The patient noticed this yesterday and did not come to the hospital, thioguht it would go away? this AM while talking to his family member likely the daugther he still had ongoing aphasia, and some lack of coordination. The was therfore brought to the hospital for further management. He notes he was in his usual state uptill around 6 PM yesterday when he noticed change in speech as well as some lack of coordination on the left side. He has chr pain issues, but beyond this does not complain of anything else. He denies any chest pain, palpitations, dizziness, headache, cough, bowel or bladder issues. The patient in the ER was seen and CT head was read as multiple old strokes. Patient was admitted to the hospital for further maangement. Tele stroke team contacted who advised workup here and no need for transfer workup initiated here, CTA neck and Head showed significant External Rt Carotid , left carotid , as well as bilateral Intracranial carotid artery stenosis. I reviewed the CAse with Dr Ledesma as well as Dr Luna (vascular surgeon). Dr Ledesma advised taht patient needs MRI and based on that may need outpatient vs inpatient evaluation of stenosis. I reviewed the case with Dr Luna, who noted that the patient should be monitored and since he has clinical CVA would benefit from waiting 4 weeks and then outpatient follow up in the clinic. The patient needs to be monitored and should there be any change in ins neurological status, then he would need urgent transfer to [place] for vascular intervention. Patient was advised to be started on dual antibplatlet agents asa and plavix, along with statin by Dr Ledesma February 25 pt seen examined stable overnight multiple lacunar infarcts on MRI discussed again with Dr Ledesma, plan to have outpatient eval by vascular surgery , Dr Luna in [place], patient ot be on dual antibplatet agents for now, on statin no new deficit. February 26: The patient remains fairly stable. He notes that he continues to have back pain. He was reporting some mild right upper quadrant discomfort this morning, but now says that has resolved. He continues to have slurred speech and left facial droop, and is quite frustrated about that. He did get up and walk with a walker with physical therapy today. He reports only mild left-sided weakness. Continues to drool. Otherwise, he denies fever chills, chest pain or palpitations, shortness of breath or cough, nausea or vomiting, diarrhea or constipation, dysuria. Medical History Disease of spinal cord, unspecified (Chronic) Gastrointestinal bleed (Chronic) Degeneration of cervical intervertebral disc (Chronic) Renal infarction (Acute) Gastric ulcer with hemorrhage and perforation (Resolved) Gastrocutaneous fistula (Resolved) Anemia (Acute) Acute urinary retention (Resolved) Wound infection (Chronic) Subphrenic abscess (Resolved) Perforated gastric ulcer (Resolved) History of tobacco use (Chronic) Hypertension, essential (Chronic) Hepatitis C, chronic (Chronic) Chronic pain (Chronic) Lymphoid hyperplasia (Chronic) Spinal cord disease (Inactive) - Constitutional Vitals: Vital Signs Temp Pulse Resp BP Pulse Ox 98.2 F 86 18 144/99 95 02/26/17 12:01 02/26/17 13:01 02/26/17 08:16 02/26/17 13:01 02/26/17 13:01 Period Temp Pulse Resp BP Sys/Tamez Pulse Ox Last 24 Hr 97.5 F-98.7 F 78-120 12-21 144-208/93-124 94-99 Intake and Output 02/25/17 02/26/17 02/26/17 21:59 05:59 13:59 Intake Total 120 / 120 Output Total 525 / 525 Balance -525 / -525 120 / 120 Weight 134 lb 12.8 oz 134 lb 12.8 oz Patient Weight 02/27/17 05:59 Weight 134 lb 12.8 oz Intake & Output: Intake & Output 02/25/17 02/26/17 02/26/17 21:59 05:59 13:59 Intake Total 120 / 120 Output Total 525 / 525 Balance -525 / -525 120 / 120 Weight 134 lb 12.8 oz 134 lb 12.8 oz Intake: Oral 120 / 120 Output: Void Amount 525 / 525 Other: Meal bites of applesauce Breakfast Percent of Meal Consumed 100% Feeding Ability Needs Supervision On exam, the patient is awake and alert, sitting up in a chair. He tells me he was able to eat breakfast this morning, and only coughed once while eating eggs. Neck is supple without obvious lymphadenopathy. Cardiac exam shows regular rate and rhythm. Lungs are clear to auscultation. Abdomen is soft and nontender. Extremities show no significant edema. Neurologic: The patient appears alert and oriented. Cranial nerves: He definitely has a left-sided lower facial droop. He has fairly continuous drooling during her interview. Otherwise cranial nerves appear intact. Motor exam: He has good telecom network manager strength, biceps and triceps strength bilaterally. He has good hip flexor strength bilaterally. He has some difficulty with arm raise on the left compared to the right. Cerebellar: I do not see much in the way of pronator drift today. Medical - PN: Obj Da - Labs CBC & Chem 7: 02/26/17 03:45 02/26/17 03:45 Labs: Abnormal Lab Results 02/26/17 02/26/17 02/25/17 03:45 03:45 06:05 WBC 11.4 H Hgb 17.3 H Gran # [place] # (Auto) 1.1 H POC Chloride Chloride 94 L 94 L Anion Gap 17.0 H POC BUN BUN 6 L Creatinine 0.6 L POC Creatinine Glucose 139 H POC WB Ioniz Calcium Lactate Dehydrogenase 261 H Globulin 4.0 H 3.9 H Albumin/Globulin Ratio 0.9 L LDL Cholesterol, Calc Non-HDL Cholesterol Urine Protein Urine Ketones Urine Occult Blood Urine Urobilinogen Urine RBC 02/25/17 02/24/17 02/24/17 06:05 13:10 11:25 WBC 12.0 H Hgb 17.4 H Gran # [place] # (Auto) POC Chloride Chloride Anion Gap POC BUN BUN Creatinine POC Creatinine Glucose POC WB Ioniz Calcium Lactate Dehydrogenase Globulin Albumin/Globulin Ratio LDL Cholesterol, Calc 133 H Non-HDL Cholesterol 152 H Urine Protein 30 A Urine Ketones 20 A Urine Occult Blood 0.2 A Urine Urobilinogen 2.0 A Urine RBC 12 H 02/24/17 02/24/17 11:25 11:25 WBC 14.1 H Hgb 16.8 H Gran # 9.3 H [place] # (Auto) 1.2 H POC Chloride 93 L Chloride 92 L Anion Gap POC BUN < 3 L BUN 4 L Creatinine POC Creatinine 0.6 L Glucose POC WB Ioniz Calcium 1.11 L Lactate Dehydrogenase Globulin 4.2 H Albumin/Globulin Ratio LDL Cholesterol, Calc Non-HDL Cholesterol Urine Protein Urine Ketones Urine Occult Blood Urine Urobilinogen Urine RBC February 25: Echocardiogram: LVH. Normal systolic function. Mild aortic insufficiency. Ejection fraction 60-65%. MRI: IMPRESSION: 1. Multiple small cortical based nonhemorrhagic lacunar infarcts scattered throughout the right cerebral hemisphere including the frontal, parietal and occipital lobes. The largest is 3.5 x 1 cm in the motor strip of the posterior right frontal lobe. Suspect embolic phenomenon 2. Moderate atrophy - more than expected for age. 3. Small remote cortical based infarct in the inferior occipital lobe and scattered remote lacunar infarcts in the deep cerebral white matter and basal ganglia. 4. Severe left maxillary sinusitis next February 24: EKG: Normal sinus rhythm at a rate of 77. Nonspecific ST-T changes. Chest x-ray: Normal chest. CT angiogram of the neck: Impression: Severe atherosclerotic disease causing 90% stenosis at the origin of the right internal carotid and 75% stenosis in the left internal carotid.75-80% stenosis of the intracranial portions of both internal carotids at the level of the cavernous sinuses. Meds: Medications Acetaminophen (Tylenol) 650 mg PO Q4-6HP PRN PRN Reason: PAIN/FEVER > 101 Hydrocodone Bitart/Acetaminophen ([place] 7.5/325mg) 1 tab PO Q6HP PRN PRN Reason: pain Last Admin: 02/26/17 09:11 Dose: 1 tab Albuterol Sulfate (Ventolin) 2.5 mg NEB Q4HRT PRN PRN Reason: Shortness Of Breath Or Wheezing Aspirin (Aspirin) [address] [facility] Last Admin: 02/26/17 09:10 Dose: 81 mg Atorvastatin Calcium (Lipitor) [address] [facility] Last Admin: 02/25/17 20:46 Dose: 40 mg Bisacodyl (Dulcolax) 10 mg [place] DAILYP PRN PRN Reason: Constipation Clopidogrel Bisulfate (Plavix) [address] [facility] Last Admin: 02/26/17 09:10 Dose: 75 mg Dextrose (Dextrose 50%) 0 ml IV UD PRN PRN Reason: Hypoglycemia Famotidine (Pepcid) [address] [facility] Last Admin: 02/26/17 09:09 Dose: 20 mg Fentanyl (Duragesic) 75 mcg TOPICAL Q72@1000 [facility] Last Admin: 02/26/17 10:25 Dose: 75 mcg Heparin Sodium (Porcine) (Heparin) 5,[address] [facility] Last Admin: 02/26/17 09:10 Dose: 5,000 unit Hydromorphone HCl (Dilaudid) 0.5 mg IV Q2HP PRN PRN Reason: Pain Last Admin: 02/25/17 15:21 Dose: 0.5 mg Lorazepam (Ativan) 0.5 mg IV Q2HP PRN PRN Reason: ANXIETY/SEDATION Lorazepam (Ativan) 0.5 - 1 mg PO DAILYP PRN PRN Reason: Anxiety Magnesium Hydroxide (Milk Of Magnesia) 30 ml PO DAILYP PRN PRN Reason: CONSTIPATION Metoprolol Tartrate (Lopressor) [address] [facility] Last Admin: 02/26/17 10:28 Dose: 50 mg Naloxone HCl (Narcan) 0.1 mg IV Q2MIN PRN PRN Reason: Opiate Reversal Nitroglycerin (Nitrostat) 0.4 mg SL Q5M PRN PRN Reason: Chest Pain Ondansetron HCl (Zofran) 4 mg IV Q4-6HP PRN PRN Reason: Nausea And Vomiting Pantoprazole Sodium (Protonix) [address] [facility] Last Admin: 02/26/17 07:44 Dose: 40 mg Paroxetine HCl (Paxil) 10 mg PO DAILYP PRN PRN Reason: Anxiety Sodium Chloride (Saline Flush) [address] [facility] Last Admin: 02/26/17 07:44 Dose: 10 ml Medical - PN: A/P - Time Spent With Patient Total time spent is greater than 50% in coordination of care (as documented) at patient's floor/unit and/or counseling patient: 25 - 35 minutes - Narrative A/P Narrative: A/P #1. Acute CVA- -Patient presented with acute signs and symptoms of stroke. He did not qualify for anticoagulants. He is now started on Plavix and aspirin and statin, per neurology recommendations. -We are working on transfer to acute inpatient rehab. 2. Hypertension. Patient has had 48 hours of permissive hypertension. We will now add back low- dose metoprolol, to bring this down just a bit, and to avoid rebound hypertension from metoprolol withdrawal. #3. Carotid artery stenosis: -needs intervention, Discussed case with Dr Luna, outptient follow up in 4 weeks unless patient has stroke in evolution. presently patient remains stable. #4. Chr pain resume home meds #5. Anxiety on ativan prn #6. h/o anemia, gi bleed: BID PPI for now, continue same, now more needed as needs dual antiplatelet agents. case discussed with pt, he needs to stop etoh. #7. Hep C: Chr issue monitor #8. DVT hep sq #9. Patient is now tolerating an oral diet. #10. Full code. Patient extensively educated regarding his case, plan for outpatient revascularization . He has risk of bleed given previous GI bleed, he should remain on PPi for now,. Medical - PN: Qual - Stroke Onset of Symptoms Date: 02/23/17 Onset of Symptoms Time: 18:00 Symptom Onset Unknown: No - VTE Deep Vein Thrombosis/Pulmonary Embolism Present on Admission: No
[2017-02-26] MEDS: ATORVASTATIN 20 MG TABLET PO SCH (20:27)
--- NOTE | 2017-02-26 20:58 | Discharge Summary ---
Medical - DS: Prov Patient information: Note initiated : 02/26/17 at 8:53 pm Service Date, if different from initiated Date: [] Patient: Brodie Farooq 66 y/o M admitted on 02/24/17 for Stroke Symptoms/CVA. Chief Complaint: [] Date of admission: 02/24/17 14:48 Discharge date: 02/27/17 Primary care physician: TUSHAR Henson. Phone number [phone] Admitting clinician: Sophia Martínez Consults: 02/24/17 12:18 Consult to Physician [CONS] Stat Comment: Consulting Provider: Sophia Martínez Reason For Exam: Physician to Consult Attending physician on discharge: Payal Davies Medical - DS: Meds - Discharge Medications Prescriptions: Clopidogrel Bisulfate [Plavix] 75 mg PO QDAY #1 tablet Hydrocodone/APAP 7.5/325Mg [[place] 7.5/325Mg] 1 tab PO Q6H PRN #90 tab PRN Reason: pain Active and Home Medications: Discharge medications: Plavix 75 mg daily Aspirin 81 mg daily Tylenol 650 mg every 4 hours as needed Albuterol nebulized as needed Lipitor 40 mg nightly Dulcolax 10 mg daily as needed Pepcid 20 mg IV or p.o. every 12 hours Duragesic patch 75 mg topically every 72 hours Heparin 5000 units subcu every 12 hours [place] 7.5/325 1 p.o. every 6 hours as needed Lorazepam 0.5-1 mg 3 times daily as needed Milk of magnesia 30 mL daily as needed Metoprolol 50 mg p.o. twice daily Naloxone 0.1 mg IV every 2 minutes as needed Nitroglycerin 0.4 mg sublingual every 5 minutes as needed Zofran 4 mg IV or p.o. every 4 hours as needed Protonix 40 mg p.o. twice daily Paxil 10 mg p.o. daily Prior home Medications Polyethylene Glycol 3350 [Miralax] 17 gm PO DAILYP PRN #0 packet 12/03/15 [Rx Confirmed 02/24/17 Last Taken Unknown] bisacodyl 10 mg rectal suppository 10 mg VA ONCE PRN 04/27/16 [History Confirmed 02/24/17 Last Taken Unknown] lorazepam 1 mg tablet 1 mg PO .COMPLEX 04/27/16 [History Confirmed 02/24/17 Last Taken Unknown] magnesium hydroxide 400 mg/5 mL oral suspension 30 ml PO .COMPLEX ml 04/27/16 [ History Confirmed 02/24/17 Last Taken Unknown] sodium phosphates 19 gram-7 gram/118 mL enema 118 ml VA ONCE PRN 04/27/16 [ History Confirmed 02/24/17 Last Taken Unknown] pantoprazole 40 mg tablet,delayed release 40 mg PO BIDAC #90 tab 07/24/16 [Rx Confirmed 02/24/17 Last Taken Unknown] fentanyl 75 mcg/hr transdermal patch 75 mcg TOPICAL Q72H #10 patch 01/31/17 [Rx Confirmed 02/24/17 Last Taken Unknown] hydrocodone 7.5 mg-acetaminophen 325 mg tablet 1 tab PO Q6H PRN #90 tab [Rx Confirmed 02/24/17 Last Taken Unknown] metoprolol tartrate 100 mg tablet 100 mg PO BID #60 tab 02/04/17 [Rx Confirmed 02/24/17 Last Taken Unknown] paroxetine 20 mg tablet 10 mg PO DAILYP PRN #0 tab 02/04/17 [Rx Confirmed Last Taken Unknown] Acetaminophen [Non-Aspirin] 650 mg PO PRN PRN 02/24/17 [History Confirmed Last Taken Unknown] Acetaminophen [Tylenol] 650 mg VA Q4-6HP PRN 02/24/17 [History Confirmed Last Taken Unknown] Bisacodyl [Dulcolax] 10 mg VA DAILYP PRN 02/24/17 [History Confirmed 02/24/17 Last Taken Unknown] Medical - DS: Hosp Hospital course: Mr. Farooq is a 66 year old M February 24, 2017: History of present illness: Mr. Farooq is a 66 year old Male with h/o chr pain, hep c, GI bleed in the past presents to the ER today with complaints of left side weakness and slurring of speech going on since 6 pm yesterday. The patient noticed this yesterday and did not come to the hospital, thioguht it would go away? this AM while talking to his family member likely the daugther he still had ongoing aphasia, and some lack of coordination. The was therfore brought to the hospital for further management. He notes he was in his usual state uptill around 6 PM yesterday when he noticed change in speech as well as some lack of coordination on the left side. He has chr pain issues, but beyond this does not complain of anything else. He denies any chest pain, palpitations, dizziness, headache, cough, bowel or bladder issues. The patient in the ER was seen and CT head was read as multiple old strokes. Patient was admitted to the hospital for further maangement. Tele stroke team contacted who advised workup here and no need for transfer. workup initiated here, CTA neck and Head showed significant External Rt Carotid , left carotid , as well as bilateral Intracranial carotid artery stenosis. I reviewed the CAse with Dr Ledesma as well as Dr Luna (vascular surgeon). Dr Ledesma advised taht patient needs MRI and based on that may need outpatient vs inpatient evaluation of stenosis. I reviewed the case with Dr Luna, who noted that the patient should be monitored and since he has clinical CVA would benefit from waiting 4 weeks and then outpatient follow up in the clinic. The patient needs to be monitored and should there be any change in ins neurological status, then he would need urgent transfer to [place] for vascular intervention. Patient was advised to be started on dual antibplatlet agents asa and plavix, along with statin by Dr Ledesma February 25 pt seen examined stable overnight multiple lacunar infarcts on MRI discussed again with Dr Ledesma, plan to have outpatient eval by vascular surgery , Dr Luna in [place], patient ot be on dual antibplatet agents for now, on statin no new deficit. February 26: The patient remains fairly stable. He notes that he continues to have back pain. He was reporting some mild right upper quadrant discomfort this morning, but now says that has resolved. He continues to have slurred speech and left facial droop, and is quite frustrated about that. He did get up and walk with a walker with physical therapy today. He reports only mild left-sided weakness. Continues to drool. Otherwise, he denies fever chills, chest pain or palpitations, shortness of breath or cough, nausea or vomiting, diarrhea or constipation, dysuria. February 27: Hospital course: This patient underwent stroke workup in the emergency room. Consultation was obtained with tele-stroke. Because his symptoms started more than 48 hours before, he was not a candidate for thrombolytics. He was started on Plavix and aspirin and a statin, as well as aggressive physical and occupational and speech therapies. Blood pressure was initially allowed to run high for 48 hours , and now metoprolol has been resumed, although at half his normal dose. This may need to be increased at some point. Today, he continues with left facial droop and slurred speech and altered swallow. Otherwise, he has no new complaints. He has no new focal weakness. He denies fever chills, chest pain or palpitations, shortness of breath, abdominal pain, nausea or vomiting, diarrhea or constipation, dysuria. Continues to have his typical chronic back pain. On exam, the patient is awake and alert, sitting up in a chair. He reports he is swallowing pretty well, and not choking as long as he follows speech therapies guidelines. Neck is supple without obvious lymphadenopathy. Cardiac exam shows regular rate and rhythm. Lungs are clear to auscultation. Abdomen is soft and nontender. Extremities show no significant edema. Neurologic: The patient appears alert and oriented. Cranial nerves: He has a left-sided lower facial droop. He has fairly continuous drooling during her interview. Otherwise cranial nerves appear intact. Motor exam: He has good shop girl strength, biceps and triceps strength bilaterally. He has good hip flexor strength bilaterally. He has some difficulty with arm raise on the left compared to the right. Assessment and plan: #1. Acute CVA- -Patient presented with acute signs and symptoms of stroke. He did not qualify for anticoagulants. He is now started on Plavix and aspirin and statin, per neurology recommendations. -Is clinically stable. He is transferring for acute rehab now, to continue making gains on returning to normal neurologic function. -He will need to follow-up with vascular surgery in approximately 4 weeks to consider carotid endarterectomy. 2. Hypertension. Patient has had 48 hours of permissive hypertension. We did add back low-dose metoprolol, to bring this down just a bit, and to avoid rebound hypertension from metoprolol withdrawal. Blood pressure is running a bit high this morning, prior to his morning meds. #3. Carotid artery stenosis: -needs intervention, Discussed case with Dr Luna, outptient follow up in 4 weeks unless patient has stroke in evolution. presently patient remains stable. #4. Chr pain resume home meds #5. Anxiety on ativan prn #6. h/o anemia, gi bleed: BID PPI for now, continue same, now more needed as needs dual antiplatelet agents. case discussed with pt, he needs to stop etoh. #7. Hep C: Chr issue monitor #8. DVT hep sq #9. Patient is now tolerating an oral diet. #10. Full code. 11. Alcohol abuse. Patient reports he drank mainly to help control his pain. He is agreeable to giving up alcohol at this time. His discharge visit took approximately 35 minutes, between reviewing and documenting his records, interviewing and examining him, and writing out his discharge orders Discharge diagnosis: Acute right hemisphere strokes, with altered speech and left-sided weakness - Time Spent with Patient Total time spent providing and/or coordinating discharge services: Greater than 30 minutes Medical - DS: Exam - Constitutional Vitals: Vital Signs Temp Pulse Pulse Resp BP BP Pulse Ox 02/26/17 20:00 97.5 F 16 144/87 98 02/26/17 19:24 18 02/26/17 19:00 151/93 02/26/17 18:00 86 159/95 95 02/26/17 17:16 85 02/26/17 17:01 143/93 02/26/17 16:00 85 167/102 94 02/26/17 15:10 98.4 F 20 157/98 97 02/26/17 15:01 79 157/98 93 02/26/17 14:01 76 148/103 95 02/26/17 14:00 85 18 94 02/26/17 13:01 86 144/99 95 02/26/17 12:01 98.2 F 95 H 162/109 96 02/26/17 11:01 120 H 148/99 97 02/26/17 10:01 109 H 163/107 98 02/26/17 09:00 161/93 02/26/17 08:16 98.7 F 107 H 18 165/102 97 02/26/17 08:01 95 H 165/102 96 02/26/17 07:35 100 H 20 99 02/26/17 07:30 102 H 02/26/17 07:01 176/112 02/26/17 06:01 163/101 02/26/17 05:01 167/101 02/26/17 04:01 97.5 F 16 153/97 97 02/26/17 03:42 148/98 02/26/17 02:00 16 149/95 94 02/26/17 01:00 16 159/97 95 02/26/17 00:00 98.1 F 16 155/95 95 02/25/17 23:00 16 146/97 96 02/25/17 22:00 16 150/94 96 02/25/17 21:01 16 176/120 96 Intake and Output 02/26/17 02/26/17 02/26/17 05:59 13:59 21:59 Intake Total 120 / 120 240 / 240 Output Total 525 / 525 Balance -525 / -525 120 / 120 240 / 240 Intake: Oral 120 / 120 240 / 240 Output: Void Amount 525 / 525 Other: Meal Breakfast Percent of Meal Consumed 100% Weight 134 lb 12.8 oz Patient Weight 02/27/17 05:59 Weight 134 lb 12.8 oz Medical - DS: Data Procedures and tests throughout hospitalization: February 25: Echocardiogram: LVH. Normal systolic function. Mild aortic insufficiency. Ejection fraction 60-65%. MRI: IMPRESSION: 1. Multiple small cortical based nonhemorrhagic lacunar infarcts scattered throughout the right cerebral hemisphere including the frontal, parietal and occipital lobes. The largest is 3.5 x 1 cm in the motor strip of the posterior right frontal lobe. Suspect embolic phenomenon 2. Moderate atrophy - more than expected for age. 3. Small remote cortical based infarct in the inferior occipital lobe and scattered remote lacunar infarcts in the deep cerebral white matter and basal ganglia. 4. Severe left maxillary sinusitis next February 24: EKG: Normal sinus rhythm at a rate of 77. Nonspecific ST-T changes. Chest x-ray: Normal chest. CT angiogram of the neck: Impression: Severe atherosclerotic disease causing 90% stenosis at the origin of the right internal carotid and 75% stenosis in the left internal carotid.75-80% stenosis of the intracranial portions of both internal carotids at the level of the cavernous sinuses. Labs on day of discharge: Labs from last 24 hours 02/26/17 02/26/17 03:45 03:45 WBC 11.4 H RBC 5.28 Hgb 17.3 H Hct 52.1 MCV 98.8 MCH 32.7 MCHC 33.1 RDW 13.6 Plt Count 278 MPV 9.1 Gran % 65.8 Lymph % (Auto) 23.5 [place] % (Auto) 9.9 Eos % (Auto) 0.4 Baso % (Auto) 0.4 Gran # 7.5 Lymph # (Auto) 2.7 [place] # (Auto) 1.1 H Eos # (Auto) 0 Baso # (Auto) 0 Sodium 137 Potassium 3.4 Chloride 94 L Carbon Dioxide 26 Anion Gap 17.0 H BUN 8 Creatinine 0.6 L GFR Calculation 106 Glucose 139 H Uric Acid 5.5 Calcium 9.7 Phosphorus 3.0 Magnesium 1.9 Total Bilirubin 0.7 Direct Bilirubin < 0.2 GGT 48 AST 21 ALT 6 Alkaline Phosphatase 90 Lactate Dehydrogenase 210 Total Protein 7.7 Albumin 3.7 Globulin 4.0 H Albumin/Globulin Ratio 0.9 L Triglycerides 71 Medical - DS: A/P - Patient/Caregiver Discharge Instructions Activity: as per physical therapy, increase activity as tolerated Diet: Dysphagia Pureed Prescriptions: Clopidogrel Bisulfate [Plavix] 75 mg PO QDAY #1 tablet Hydrocodone/APAP 7.5/325Mg [[place] 7.5/325Mg] 1 tab PO Q6H PRN #90 tab PRN Reason: pain - Follow up Plan Follow up with: Luis Eduardo Go PA-C [Primary Care Provider] - Disposition: Xfer Inpatient Rehab Fac Prognosis: Fair Rehab Potential: Fair I certify that the patient requires SNF services: Yes Overall status at discharge: patient is progressing back to baseline Medical - DS: Qual - VTE Deep Vein Thrombosis/Pulmonary Embolism Present on Admission: No
[2017-02-27 05:09] LABS: Basophils # (Auto) 0.1 K/mcL (0.0-0.3); Eosinophils # (Auto) 0.1 K/mcL (0.0-0.7); Granulocytes % (Auto) 58.4 % (38.0-78.0); Lymphocytes # (Auto) 3.4 K/mcL (1.5-4.8); Mean Corpuscular HGB Conc 33.6 g/dL (31.0-36.0); Monocytes # (Auto) 1.1 K/mcL (0.1-0.9); Monocytes % (Auto) 9.6 % (1.0-12.0); Platelet Count 258 K/mcL (140-440); RBC 5.26 M/mcL (4.50-5.90); Red Cell Distribution Width 13.8 % (11.5-14.5)
[2017-02-27 05:35] LABS: ALT/SGPT 8 U/l (0-40); Albumin 3.9 gm/dL (3.2-5.2); Albumin/Globulin Ratio 1.1 (1.0-2.3); Alkaline Phosphatase 81 U/L (39-117); Bilirubin,Direct < 0.2 mg/dL (0.0-0.3); Blood Urea Nitrogen 19 mg/dl (8-23); Gamma Glutamyl Transpeptidase 46 U/L (8-61); Uric Acid 4.8 mg/dL (2.5-8.0)
[2017-02-27] MEDS: 0.9 % SODIUM CHLORIDE 10 ML SYRINGE IV SCH (06:19)
[2017-02-27] MEDS: HYDROCODONE/APAP 7.5/325MG TABLET PO PRN (06:44)
[2017-02-27] MEDS: PANTOPRAZOLE 40 MG TABLET PO SCH (06:44)
[2017-02-27] MEDS: ASPIRIN 81 MG TAB.CHEW PO SCH (08:05)
[2017-02-27] MEDS: HEPARIN 5,000 UNIT/ML VIAL SQ SCH (08:05)
[2017-02-27] MEDS: CLOPIDOGREL 75 MG TABLET PO SCH (08:05)
[2017-02-27] MEDS: METOPROLOL TARTRATE 50 MG TABLET PO SCH (08:05)
== END 2017-02-27 08:20 ==
LOC: ED 11:17 → SUATTDRO 14:48 → INTOOBSV 14:48 → ICU 14:48
PROVIDERS: ADMIT Internal Medicine; ATTEND Internal Medicine